=== PATIENT | male | born 1975 | race African-American/Black ===

== ENCOUNTER 2017-08-18 13:08 | Inpatient (IN) | payer OTHER ==
[2017-08-18] MEDS ORDERED: Nitroglycerin 2% Ointment 1 INCH/1 GM Packet ONE (14:12)
[2017-08-18 14:16] LABS: Troponin I 0.732 ng/mL (< 0.028)
[2017-08-18] MEDS ORDERED: Acetaminophen 325 MG TAB PO PRN (15:08)
[2017-08-18] MEDS ORDERED: Ondansetron HCl/PF 4 MG/2 ML Vial IVP PRN (15:08)
[2017-08-18] MEDS ORDERED: Ondansetron ODT 4 MG TAB PO PRN (15:08)
[2017-08-18] MEDS ORDERED: Bisacodyl 5 MG TAB PO PRN (15:08)
--- NOTE | 2017-08-18 19:33 | HP ---
PRIMARY CARE PHYSICIAN: Dr. Rod. CHIEF COMPLAINT: Shortness of breath. HISTORY OF PRESENT ILLNESS: This is a 42-year-old -[place]ian male with a significant past med ical history of hypertension, nonischemic cardiomyopathy and end-stage renal disease on dialysis for many years. The patient reports that he occasionally gets a little short of breath for dialysis an d then it will go away after they get fluid off; however, he has been feeling increased shortness of breath for the last 3-4 days associated with a dry cough and initially some nasal congestion that h as since resolved. The shortness of breath did not get better with his dialysis, they were only abl e to take off 1.2 liters yesterday before he started calf cramping. He has actually had calf crampi ng with dialysis every time for the last 2 weeks. The patient presented to [facility] and was found to be with severe hypertension. Blood pressure initially 183/108. He had cardiac markers done, which were elevated at 0.68 and so he was transferred over to [facility]. Here, re check troponin was 0.7. He denies any chest pain. His blood pressure in our emergency room was 185 /102. He had nitroglycerin placed on his chest wall and blood pressure is now down to 147/88 and hi s shortness of breath is a little bit better. O2 sats were 93% on room air at the outside emergency room. He is breathing better now on 2 liters of oxygen. PAST MEDICAL HISTORY: 1. End-stage renal disease, on hemodialysis. 2. Nonischemic cardiomyopathy. 3. Hypertension. PAST SURGICAL HISTORY: 1. AICD placement in 2009. 2. Hemodialysis catheter and fistula placements. ALLERGIES: No known drug allergies. MEDICATIONS: The patient does not remember the dosages of his medications. 1. Hydralazine 3 times a day. 2. Amlodipine once a day. 3. Metoprolol. 4. Losartan. 5. Aspirin 325 mg daily. 6. Minoxidil 3 times a day. FAMILY HISTORY: Patient's mom has lupus as well as peripheral vascular disease. His brother f rom heart disease at the age of 28 and has lots of heart disease, hypertension and renal disease in his family. SOCIAL HISTORY: The patient lives in [place]. 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 No tobacco, alcohol or illicit drug use. The patient is with 4 children. He a lso currently lives with his mother, Christian Johnston, who he states would be his medical power of atto rney. REVIEW OF SYSTEMS: Constitutional: No fevers, no chills, no weight changes. Eyes: No double visi on or blurred vision. ENT: See HPI. No sore throat. Cardiovascular: See HPI. No chest pain, no palpitations. Pulmonary: See HPI. Gastrointestinal: No abdominal pain, no nausea, vomiting, no diarrhea or constipation. Genitourinary: He does still produce a little bit of urine. No dysuria or hematuria. Musculoskeletal: Patient has muscle cramps during dialysis as above. No other muscu loskeletal complaints. Skin: No rashes or other lesions he has noticed. Neurologic: No numbness, tingling or focal weakness. PHYSICAL EXAMINATION: VITAL SIGNS: Blood pressure 147/88, pulse 83, respirations 16, O2 sat 96% on 2 liters and temperatu re 98.2. GENERAL: This is a well-developed, obese -[place]ian male in no apparent distress, breathing e asily on oxygen. He does get a little breathless when he starts speaking now. HEENT: Pupils are equal, round and reactive to light. Oropharynx is clear without lesions, erythem a or exudate. NECK: Supple. No lymphadenopathy, no thyroid nodules or enlargement. He does have some mild JVD. HEART: Regular rate and rhythm. No murmurs, rubs or gallops. LUNGS: He has some bibasilar crackles, otherwise good air movement throughout. ABDOMEN: Obese, soft and nontender to palpation. Normoactive bowel sounds. No hepatosplenomegaly or other masses. EXTREMITIES: No clubbing or cyanosis. He does have trace pretibial and foot edema. He states it w as worse that it was earlier. NEUROLOGIC: Cranial nerves are intact and equal bilaterally. No facial droop. Deep tendon reflexe s are 2+ in all extremities. Strength is normal in all extremities. PSYCHIATRIC: Alert and oriented x3, normal mood and affect. LABORATORY AND IMAGING DATA: CBC notable for hemoglobin of 11.6, normocytic anemia. A complete met abolic panel was notable for carbon dioxide of 30, a BUN of 34 and creatinine of 10, the rest is nor mal. Brain natriuretic peptide is 2600, which is markedly elevated beyond what his BNP has been in the past several years ago was the highest was 200 and was 293. Troponin was initially 0.686 rechec k was 0.732. CK-MB is normal. I did review the chest x-ray done in the emergency room along with t he radiologist's report, it does show some cardiomegaly with a left ICD and mild vascular congestion . ASSESSMENT AND PLAN: 1. End-stage renal disease with volume overload. The patient requires dialysis. We will admit isaac adler to the hospital and consult Dr. Becerra, who is director investor relations to dialyze the patient. 2. Hypertensive urgency, resolved with ablation and nitro paste to the patient's chest wall. We wi ll continue nitro paste and we will restart medications. We have to guess the dosages just for now until we get his home dosages. We will start little lower on hydralazine, amlodipine, metoprolol an d minoxidil as well as Losartan and titrate up as needed. 3. Non-ST elevation myocardial infarction. The patient does have elevated troponin. This is likel y due to heart strain combined with the patient's end-stage renal disease causing this high elevatio n; however, he could have some heart damage from the hypertensive urgency. We will consult Dr. Sadia montoya and will get an echocardiogram. 4. Nonischemic cardiomyopathy. 5. Gastrointestinal prophylaxis. We will put patient on Pepcid while he is in the hospital. 6. Deep venous thrombosis prophylaxis. We will put patient on sequential compression devices and T EDs while he is in bed. CODE STATUS: Patient is a FULL CODE. He states his medical power of commercial litigation attorney will be his mother, Boogie Johnston.
[2017-08-18] MEDS: Docusate 100 MG CAP PO SCH (20:00)
[2017-08-18] MEDS: Famotidine 20 MG TAB PO SCH (20:00)
[2017-08-18] MEDS: hydrALAZINE 25 MG TAB PO SCH (20:01)
[2017-08-18] MEDS: Nitroglycerin 2% Ointment 1 INCH/1 GM Packet TOP SCH (20:02)
[2017-08-18] MEDS: Minoxidil 2.5 MG TAB PO SCH (20:02)
[2017-08-19 05:32] LABS: #Basophils 0.1 thou/uL (0.0-0.2); #Eosinphils 0.2 thou/uL (0.0-0.7); #Lymphocytes 1.5 thou/uL (1.20-3.40); #Monocytes 0.8 thou/uL (0.11-0.59); #Neutrophils 6.9 thou/uL (1.40-6.50); %Basophils 0.7 % (0.0-1.0); %Eosinophils 2.4 % (0.0-10.0); %Monocytes 8.4 % (0.0-10.0); Hematocrit 36.4 % (42.0-52.0); Mean Platelet Volume 8.2 fL (7.4-10.4); Red Blood Cell (RBC) Count 3.78 mill/uL (4.70-6.10); White Blood Cell (WBC) Count 9.6 thou/uL (4.8-10.8)
[2017-08-19 05:49] LABS: Anion Gap 18 mmol/L (10-20); BUN (Urea Nitrogen) 45 mg/dL (8.9-20.6); Calc. Creatinine Clearance 12 mL/min (70-130); Calcium 10.1 mg/dL (7.8-10.44); Carbon Dioxide 27 mmol/L (22-29); Chloride 99 mmol/L (98-107); Estimated GFR-MDRD 6
--- NOTE | 2017-08-19 05:58 | CON ---
DATE OF CONSULTATION: 08/18/2017 CONSULTING PHYSICIAN: Dr. Mariam Johnson. REQUESTING PHYSICIAN: Dr. Quispe as well as the ER physician. REASON FOR CONSULTATION: The need for maintenance hemodialysis. IMPRESSION: 1. End-stage renal disease, hemodialysis dependent on a Thursday, Thursday and Thursday schedule. 2. Respiratory distress, query cause. I doubt this to be as a result of fluid overload. 3. Hypertension. 4. Nonischemic cardiomyopathy. PLAN: 1. The patient is not in any serious respiratory distress at this point; therefore, we will defer d ialysis to coincide with this patient's schedule of Thursday, Thursday and Thursday. 2. Further management will be dependent on the clinical course including possibility of evaluating this patient for other potential causes of respiratory distress. HISTORY OF PRESENT ILLNESS: History is that of a 42-year-old gentleman with end-stage renal disease , hemodialysis dependent on a Thursday, Thursday and Thursday, who presented here with shortness of jesenia ath. Patient did dialyze yesterday, but according to the patient, he did not have much of any fluid on board; therefore, the patient started cramping after about 1.17 liters of ultrafiltration. In a ny case, chest x-ray showed some mild pulmonary congestion, but otherwise unremarkable. The patient is now being admitted with elevated BNP and blood pressure. The patient seems to be oxygenating ok ay on nasal cannula supplementation. Patient now is to undergo hemodialysis in accordance with the schedule tomorrow. PAST MEDICAL HISTORY: Significant for end-stage renal disease, ischemic cardiomyopathy, status post defibrillator and hypertension. FAMILY HISTORY: Significant for kidney disease in the father. SOCIAL HISTORY: Denies alcohol, tobacco or illicit drug use. REVIEW OF SYSTEMS: As documented in the body of the history. ALLERGIES: No known drug allergies. PHYSICAL EXAMINATION: GENERAL: The patient was found not to be in any obvious distress. Noted with the following; VITAL SIGNS: Afebrile with temperature of 98, pulse 81, respiratory rate of 16, O2 sat 93% and bloo d pressure 177/93. HEENT: Unremarkable. CARDIOVASCULAR SYSTEM: First and second heart sounds were heard. RESPIRATORY SYSTEM: Clear to auscultation. DIGESTIVE SYSTEM: Revealed a benign abdomen. EXTREMITIES: No peripheral edema. SKIN: No new gross rash. LYMPHATICS: No peripheral lymphadenopathy. SUMMARY: A 42-year-old gentleman with end-stage renal disease who presented here with shortness of breath. Thank you for this consultation. We will follow with you.
--- NOTE | 2017-08-19 08:40 | CON ---
DATE OF CONSULTATION: 08/18/2017 HISTORY OF PRESENT ILLNESS: Sergio Linares is a 42-year-old black male with history of nonischemic cardiomyopathy, who has been followed by Dr. Burton in the past. Also, in 2009, he had an ICD, dual chamber placed. He was last seen in the office in 06/2014. He had been seen in the emergency room for bronchitis and had the troponin level that was slightly elevated and CK-MB was normal. It is of note that an echocardiogram at that time in June 2014, revealed an ejection fraction of 60% to 65% with hyperdynamic left ventricle and left ventricular hypertrophy. He has not been seen since that time. He has noted that over the past 3 to 4 days there has been having problems with increasing shortness of breath. He used to become dyspneic on the day of dialysis, but after he dialyzes, his dyspnea resolves. It has been difficulty in removing more fluid. Due to shortness of breath, he went to the emergency room in [place] and was found to have blood pressure at 183/108 with slightly elevated troponins. He denies any chest discomfort. PAST MEDICAL HISTORY: Hypertension, nonischemic cardiomyopathy, although the last ejection fraction was 60% to 65%. End-renal disease, on dialysis. OPERATIONS: Fistula placements and ICD placement in 2009. MEDICATIONS: Amlodipine 5 mg b.i.d., aspirin 325 daily, hydralazine 25 t.i.d., losartan 12.5 daily, metoprolol 50 daily, minoxidil 5 mg t.i.d. ALLERGIES: None. SOCIAL HISTORY: Does not smoke or drink. He continues to work. REVIEW OF SYSTEMS: Twelve point review of systems otherwise unremarkable. PHYSICAL EXAMINATION: VITAL SIGNS: 177/93, pulse of 81. HEENT: PERRL. NECK: Supple. CHEST: Clear. CARDIAC EXAMINATION: S1 and S2 are normal, without any S3 or S4. There is a 2/ 6 systolic ejection murmur. ABDOMEN: Obese, normal bowel sounds without tenderness or organomegaly. EXTREMITIES: Revealed no clubbing, cyanosis, or edema. NEUROLOGIC: Grossly intact. SKIN: Warm and dry. LABORATORY DATA AND DIAGNOSTICS: EKG reveals normal sinus rhythm with low voltage, nonspecific ST changes. Hemoglobin 11.6, hematocrit 36.1, white count 8600, platelets 245,000. Sodium 144, potassium 4.1, chloride 99, carbon dioxide 30, BUN 34, creatinine 10.00. CK-MBs are normal. Troponin I is up to 0.732. He has always had elevated troponin I's. BNP 2697.5. Chest x-ray reveals cardiomegaly with mild vascular congestion. IMPRESSION: 1. Nonischemic cardiomyopathy, although last ejection fraction in 06/2014, was 60% to 65%. He currently has a very elevated BNP and probably needs to have more fluid removed at dialysis if possible. 2. Chronically elevated troponin I secondary to his renal insufficiency. His CK-MB is normal and I doubt that he has had a myocardial infarction. 3. Hypertension, poorly controlled. PLAN: Medications will be adjusted as needed for blood pressure control. He will continue to undergo dialysis. Echo will be performed to reassess left ventricular function. [employer] has been contacted to evaluate his defibrillator. VISHNU
[2017-08-19] MEDS ORDERED: Heparin 10,000 UNITS/ 10 ML VIAL ONE (09:00)
[2017-08-19] MEDS: Nitroglycerin 2% Ointment 1 INCH/1 GM Packet TOP SCH ×2 (09:24→21:07)
[2017-08-19] MEDS: Aspirin 325 MG TAB PO SCH (09:24)
[2017-08-19] MEDS: Docusate 100 MG CAP PO SCH ×2 (09:24→21:05)
[2017-08-19] MEDS: Amlodipine 5 MG TAB PO SCH (09:25)
[2017-08-19] MEDS: hydrALAZINE 25 MG TAB PO SCH ×3 (09:25→21:05)
[2017-08-19] MEDS: Minoxidil 2.5 MG TAB PO SCH ×3 (09:25→21:06)
[2017-08-19] MEDS: Famotidine 20 MG TAB PO SCH (09:25)
[2017-08-19] MEDS: Losartan 25 MG TAB PO SCH (09:26)
[2017-08-19 11:13] LABS: Troponin I 0.583 ng/mL (< 0.028)
--- NOTE | 2017-08-19 11:18 | PRG ---
DATE OF SERVICE: 08/19/2017 SUBJECTIVE: The patient was seen and examined at the bedside. He is getting dialysis as we speak. He has some shortness of breath which improved to some extent since yesterday, but he still complai ns about that. No chest pain, no cough. He had a bowel movement last night. His appetite is fair. His head is atraumatic, normocephalic. PHYSICAL EXAMINATION: VITAL SIGNS: Blood pressure at the time of my visit is 155/78, pulse is 92, respiratory rate is 20, O2 saturation is 94 on 2 liters by nasal cannula. Temperature is 99.2. HEENT: Eyes; PERRLA. Conjunctivae pink. Sclerae nonicteric. Oral mucosa is moist. NECK: Supple, obese. LUNGS: Breath sounds diminished at both bases. No crackles, no rales, no wheezing. CARDIOVASCULAR: S1, S2 normal, no S3, no S4. He has a fistula on the left arm functioning properly . ABDOMEN: Soft, obese, nontender. Bowel sounds are present. No organomegaly. EXTREMITIES: No clubbing, cyanosis or edema. NEUROLOGIC: He is alert and oriented x3. There is no sensorimotor deficit. Cranial nerves are int act. LABORATORY DATA: Shows white count of 9.6, hemoglobin 11.2, hematocrit 36.4, platelet count 232. E lectrolytes within normal limits. BUN 45, creatinine 11.94. IMPRESSION: 1. End-stage renal disease with volume overload. The patient is getting dialyzed per Dr. Edgar bermeo. He is supervising that. 2. Hypertensive urgency, improved. He is on amlodipine 5 mg daily, hydralazine 25 mg 3 times a day , losartan 12.5 mg once a day, metoprolol 25 mg daily, minoxidil 5 mg 3 times a day, nitroglycerin 1 inch topical twice a day. The blood pressure is going to improve gradually with more in dialysis. 3. Elevated troponin. The patient was seen by Dr. Fung who noticed that he has chronically geovanni vated troponin secondary to his renal insufficiency and he doubts that this is somehow related to ac amelia coronary event, the patient does not complain about any chest pain. 4. Nonischemic cardiomyopathy with ejection fraction 60-65 in 2013. PLAN: We are waiting for results on echocardiogram. Also, the patient was checked by [employer] rep resentative and it looks like his battery on his AICD is running low, so we will let Dr. Kenton anderson and he will need to have battery replaced. Plan is as mentioned above and continue DVT prophylax is with SCDs.
--- NOTE | 2017-08-19 12:29 | PRG ---
DATE OF SERVICE: 08/19/2017 SUBJECTIVE: The patient was seen and examined today at dialysis with no new complaints, noted with the following. OBJECTIVE: VITAL SIGNS: Afebrile with a temperature of 99.2, pulse 92, blood pressure 155/78, respiratory rate 20 and O2 saturation 94%. HEENT: Unremarkable with moist oral mucosa. No conjunctival injection, no icterus. NECK: Supple. CARDIOVASCULAR SYSTEM: First and second heart sounds were heard. RESPIRATORY SYSTEM: Clear to auscultation. DIGESTIVE SYSTEM: Revealed a benign abdomen. EXTREMITIES: No peripheral edema. SKIN: No new gross rash. LYMPHATICS: No peripheral lymphadenopathy. IMPRESSION: 1. End-stage renal disease, on hemodialysis. 2. Respiratory distress seems to have improved. PLAN: Continue hemodialysis per schedule. Further management dependent on the clinical course.
--- NOTE | 2017-08-19 12:46 | PDOC.CTH ---
<Kelin Chery - Last Filed: 08/20/17 09:15> Cardiology Progress Note - Subjective The pt was seen and examined. No overnight events. No cardiac complaints. He still complains of SOB due to nasal drip drainage from sinus/allergy. No distress with RA. - Objective Vital Signs Temp Pulse Resp BP BP BP Pulse Ox 08/19/17 09:25 92 155/78 H 08/19/17 07:50 99.2 F 92 20 94 L 08/19/17 07:36 99.2 F 92 20 155/78 H 94 L 08/19/17 04:00 98.3 F 92 22 H 136/74 94 L 08/19/17 02:05 92 L Weight 240 lb 12.8 oz 08/18/17 08/19/17 08/20/17 06:59 06:59 06:59 Intake Total 1560 Output Total 500 Balance 1060 - Physical Examination General/Neuro: alert & oriented x3 Neck: no JVD present Lungs: CTA Heart: RRR Abdomen: soft Extremities: other: (No edemas) - Telemetry Telemetry Rhythm: SR 90s - Labs Result Diagrams: 08/19/17 04:10 08/19/17 04:10 Troponin/CKMB CK-MB (CK-2) 5.5 ng/mL (0-6.6) 08/19/17 10:23 Troponin I 0.583 ng/mL (< 0.028) H* 08/19/17 10:23 - Assessment/Plan 1. ESRD with Volume overload - SOB improved today; RA without any distress at this time; cont. monitor 2. HTN - stable with current medication and dialysis; cont. monitor 3. noischemic CMY - stable; cont. monitor 4. AICD placement - close to ADALI; EP consult for generator replacement MAR reviewed Review of Systems - Review of Systems Constitutional: reports: no symptoms reported EENTM: reports: no symptoms reported Respiratory: reports: see HPI Cardiac (ROS): reports: no symptoms reported ABD/GI: reports: no symptoms reported : reports: no symptoms reported Musculoskeletal: reports: no symptoms reported Skin: reports: no symptoms reported Neurological: reports: no symptoms reported <Guadalupe Burton - Last Filed: 08/20/17 16:11> Cardiology Progress Note - Objective Vital Signs Temp Pulse Resp BP BP BP Pulse Ox 08/20/17 14:53 100 116/54 L 08/20/17 12:00 98.9 F 94 16 96/52 L 98 08/20/17 08:48 91 148/74 H 08/20/17 08:42 98.7 F 91 16 148/76 H 95 Weight 235 lb 1.6 oz 08/19/17 08/20/17 08/21/17 06:59 06:59 06:59 Intake Total 1560 1475 Output Total 500 4000 Balance 1060 -2525 - Labs Result Diagrams: 08/19/17 04:10 08/19/17 04:10 Troponin/CKMB CK-MB (CK-2) 5.5 ng/mL (0-6.6) 08/19/17 10:23 Troponin I 0.583 ng/mL (< 0.028) H* 08/19/17 10:23 - Assessment/Plan Pt. seen and eval. I agree with the A/P by the SENIOR PATROL AGENT. Will ask EP to see for AICD that is at ADALI. Pt. feels better after diuresis. Will review echo.
[2017-08-20 08:16] VITALS: BMI 36.8
[2017-08-20] MEDS: Famotidine 20 MG TAB PO SCH (08:48)
[2017-08-20] MEDS: Aspirin 325 MG TAB PO SCH (08:48)
[2017-08-20] MEDS: Docusate 100 MG CAP PO SCH ×2 (08:48→21:34)
[2017-08-20] MEDS: Amlodipine 5 MG TAB PO SCH (08:48)
[2017-08-20] MEDS: hydrALAZINE 25 MG TAB PO SCH ×3 (08:48→21:34)
[2017-08-20] MEDS: Losartan 25 MG TAB PO SCH (08:49)
[2017-08-20] MEDS: Minoxidil 2.5 MG TAB PO SCH ×3 (08:49→21:36)
[2017-08-20] MEDS: Nitroglycerin 2% Ointment 1 INCH/1 GM Packet TOP SCH ×2 (08:50→21:36)
--- NOTE | 2017-08-20 09:19 | PDOC.CTH ---
<Kelin Chery - Last Filed: 08/20/17 09:17> Cardiology Progress Note - Subjective The pt was seen and examined. No overnight events. No cardiac complaints. - Objective Vital Signs Temp Pulse Resp BP BP BP Pulse Ox 08/20/17 08:48 91 148/74 H 08/20/17 08:42 98.7 F 91 16 148/76 H 95 08/20/17 04:00 98.7 F 100 18 131/68 94 L 08/20/17 01:51 93 L 08/20/17 00:00 97.9 F 90 18 103/53 L 94 L Weight 235 lb 1.6 oz 08/19/17 08/20/17 08/21/17 06:59 06:59 06:59 Intake Total 1560 1475 Output Total 500 4000 Balance 1060 -2525 - Physical Examination General/Neuro: alert & oriented x3 Neck: no JVD present Lungs: CTA Heart: RRR Abdomen: soft, other: Extremities: other: (No edema) - Telemetry Telemetry Rhythm: SR 90s - Labs Result Diagrams: 08/19/17 04:10 08/19/17 04:10 Troponin/CKMB CK-MB (CK-2) 5.5 ng/mL (0-6.6) 08/19/17 10:23 Troponin I 0.583 ng/mL (< 0.028) H* 08/19/17 10:23 - Assessment/Plan 1. ESRD with Volume overload - SOB improved; RA without any distress at this time; cont. monitor 2. HTN - stable with current medication and dialysis; cont. monitor 3. noischemic CMY - stable; cont. monitor; Echo result is pending 4. AICD placement - close to ADALI; EP consult for generator replacement MAR reviewed Review of Systems - Review of Systems Constitutional: reports: no symptoms reported EENTM: reports: no symptoms reported Respiratory: reports: no symptoms reported Cardiac (ROS): reports: no symptoms reported ABD/GI: reports: no symptoms reported : reports: no symptoms reported Musculoskeletal: reports: no symptoms reported <Guadalupe Burton - Last Filed: 08/20/17 18:08> Cardiology Progress Note - Objective Vital Signs Temp Pulse Pulse Pulse Resp BP BP 08/20/17 16:00 99.0 F 98 18 08/20/17 14:53 100 116/54 L 08/20/17 14:03 104 H 105 H 135/64 08/20/17 12:00 98.9 F 94 16 08/20/17 08:48 91 148/74 H 08/20/17 08:42 98.7 F 91 16 BP BP BP Pulse Ox Pulse Ox Pulse Ox 08/20/17 16:00 127/58 L 98 08/20/17 14:53 08/20/17 14:03 137/70 98 97 08/20/17 12:00 96/52 L 98 08/20/17 08:48 08/20/17 08:42 148/76 H 95 Weight 235 lb 1.6 oz 08/19/17 08/20/17 08/21/17 06:59 06:59 06:59 Intake Total 1560 1475 Output Total 500 4000 Balance 1060 -2525 - Labs Result Diagrams: 08/19/17 04:10 08/19/17 04:10 Troponin/CKMB CK-MB (CK-2) 5.5 ng/mL (0-6.6) 08/19/17 10:23 Troponin I 0.583 ng/mL (< 0.028) H* 08/19/17 10:23 - Assessment/Plan Pt. seen and evaluated. He has HCMY. Severe LVH, concentric. EF approx. 60%. Diastolic dysfx. I agree with the remainder of the A/P by the SUPERVISOR FOOD CHECKERS AND CASHIERS.
--- NOTE | 2017-08-20 09:44 | PRG ---
DATE OF SERVICE: 08/20/2017 SUBJECTIVE: The patient was seen and examined at the bedside. He is doing well. He feels like he is back to his baseline in terms of shortness of breath and volume overload. He is able to get up a nd go to the bathroom and move bowels. His appetite is good. OBJECTIVE: VITAL SIGNS: Blood pressure is 148/74, pulse is 91, respiratory rate is 16, temperature is 98.7, an d O2 saturation is 95% on room air. HEENT: Atraumatic, normocephalic. Eyes PERRLA. Conjunctivae pinkish. Sclerae nonicteric. Oral m ucosa is moist. NECK: Supple, obese, and nontender. No carotid bruits. LUNGS: Breaths sounds clear bilaterally. No wheezing. No rales, no crackles. CARDIOVASCULAR: S1, S2, somewhat distant. No S3, no S4. There is a systolic murmur 2/6 at the lef t sternal border, mostly audible. ABDOMEN: Soft, nontender. Bowel sounds are present. EXTREMITIES: 1+ peripheral edema similar bilaterally, nonpitting. NEUROLOGIC: He is alert and oriented x4. There is no any motor or sensory deficits. LABORATORY DATA: None today. IMPRESSION: 1. End-stage renal disease with volume overload. The patient seems to be back to his baseline at t his point. 2. Hypertensive urgency. His blood pressure is controlled much better at this point. 3. Elevated troponin, which is felt that this is chronic and related to renal insufficiency. 4. Nonischemic cardiomyopathy. Echocardiogram was done during this hospitalization and results are pending. 5. Low level of battery status on his automated implantable cardioverter defibrillator after the de vice was checked yesterday. The patient is going to see grain origination specialist, Dr. Mills for his heart evalu ation and most likely replacing the battery and that is the plan for today.
--- NOTE | 2017-08-20 18:20 | PRG ---
DATE OF SERVICE: 08/20/2017 SUBJECTIVE: The patient was seen and examined today with no new complaint noted. PHYSICAL EXAMINATION: VITAL SIGNS: Afebrile with temperature 98.9, pulse 94, blood pressure 116/54, respiratory rate 16, O2 saturation 98%. HEENT: Unremarkable with moist oral mucosa. Neck was supple. No conjunctival injection or icterus. CARDIOVASCULAR: First and second heart sounds were heard. RESPIRATORY: Clear to auscultation. DIGESTIVE: Revealed a benign abdomen with positive bowel sounds. EXTREMITIES: No peripheral edema. SKIN: No new gross rash. LYMPHATICS: No peripheral lymphadenopathy. IMPRESSION: 1. End-stage renal disease, hemodialysis dependent on a Thursday, Thursday, Thursday schedule. 2. Ischemic cardiomyopathy, status post defibrillator. PLAN: 1. From the renal standpoint, the patient is good for discharge; however, if the patient remains he re by tomorrow, we will go ahead and dialyze this patient in accordance with his schedule. 2. Further management to be dependent on the clinical course.
[2017-08-21] MEDS ORDERED: Heparin 10,000 UNITS/1 ML VIAL ONE (08:27)
[2017-08-21] MEDS: hydrALAZINE 25 MG TAB PO SCH ×2 (08:40→16:01)
[2017-08-21] MEDS: Nitroglycerin 2% Ointment 1 INCH/1 GM Packet TOP SCH (08:40)
[2017-08-21] MEDS: Docusate 100 MG CAP PO SCH (09:35)
[2017-08-21] MEDS: Minoxidil 2.5 MG TAB PO SCH ×2 (12:56→16:01)
[2017-08-21] MEDS ORDERED: CEFAZOLIN/Water 2 GM/20 ML SYRINGE ONE (13:45)
[2017-08-21] MEDS ORDERED: Propofol 200 MG/20 ML VIAL ONE (13:52)
[2017-08-21] MEDS ORDERED: Lidocaine 1% PF 5 ML VIAL ONE (13:52)
[2017-08-21] MEDS ORDERED: Fentanyl 100 MCG/2 ML VIAL ONE (14:15)
--- NOTE | 2017-08-21 15:46 | PDOC.CTH ---
Cardiology Progress Note - Subjective Pt. seen and eval.No complaints. AICD generator changed. No complications. - Objective Vital Signs Temp Pulse Resp BP Pulse Ox 08/21/17 11:59 98.6 F 92 20 113/62 100 08/21/17 08:40 92 08/21/17 08:20 98.7 F 94 16 120/59 L 100 Weight 231 lb 08/20/17 08/21/17 08/22/17 06:59 06:59 06:59 Intake Total 1475 500 Output Total 4000 0 Balance -2525 500 - Physical Examination General/Neuro: alert & oriented x3 Neck: carotid US brisk Lungs: CTA Heart: RRR Abdomen: no HSM - Labs Result Diagrams: 08/19/17 04:10 08/19/17 04:10 Troponin/CKMB CK-MB (CK-2) 5.5 ng/mL (0-6.6) 08/19/17 10:23 Troponin I 0.583 ng/mL (< 0.028) H* 08/19/17 10:23 - Assessment/Plan 1. CMY. Hypertrophic. Diastolic dysfunction. Normal EF. Continue present meds. 2. AICD @ [facility]. [facility] today. 3. HTN. Maximize meds. Should be able to go home today. Review of Systems - Review of Systems EENTM: reports: no symptoms reported Respiratory: reports: no symptoms reported Cardiac (ROS): reports: no symptoms reported : reports: no symptoms reported Neurological: reports: no symptoms reported
[2017-08-21 15:57] VITALS: BP 126/59; TEMP 97.8
[2017-08-21] MEDS: Famotidine 20 MG TAB PO SCH (16:00)
[2017-08-21] MEDS: Losartan 25 MG TAB PO SCH (16:00)
[2017-08-21] MEDS: Amlodipine 5 MG TAB PO SCH (16:00)
[2017-08-21] MEDS: Aspirin 325 MG TAB PO SCH (16:00)
--- NOTE | 2017-08-21 16:41 | RAD ---
PORTABLE AP CHEST X-RAY 08/21/17 HISTORY: Post cardiac device placement. COMPARISON: 07/05/14. FINDINGS: A dual lead left subclavian AICD device is noted in place. The cardiac silhouette is mildly enlarged . Pulmonary vasculature is within normal limits. The lungs are clear. There is no pneumothorax or pl eural effusion. There has been no interval change from prior study. IMPRESSION: 1. No acute cardiopulmonary process. 2. Cardiomegaly. 3. Left subclavian AICD device in place. POS: [facility]
[2017-08-21] MEDS ORDERED: Cephalexin 250 MG CAP PO SCH (18:00)
--- NOTE | 2017-08-21 21:44 | PRG ---
DATE OF SERVICE: 08/21/2017 SUBJECTIVE: Patient was seen and examined at bedside and overnight events noted. Patient denies an y shortness of breath or chest pain or palpitation. No history of nausea or vomiting or diarrhea or fever or chills or cramps. OBJECTIVE: GENERAL: This is a well-built male, in no apparent distress. VITAL SIGNS: Temperature 97.8, pulse 92, respiratory rate 16, blood pressure 133/62. HEENT: Atraumatic, normocephalic, Oral mucosa is moist. NECK: Supple. CARDIOVASCULAR: S1, S2 heard, rate and rhythm regular. RESPIRATORY: Clear to auscultation. GASTROINTESTINAL: Abdomen is soft. MUSCULOSKELETAL: No tenderness, no edema. DERMATOLOGIC: No skin rash. NEUROLOGIC: Alert and awake and oriented x3. No focal neurologic deficits. Moving all the extremi ties. PSYCHIATRIC: Mood and affect normal. ASSESSMENT AND PLAN: 1. End-stage renal disease. The patient was seen during dialysis. The patient was seen by Dr. Pro mcintosh without knowing that I was his president sales and marketing. I will take over today. The patient was seen and evaluated during dialysis. 2. Hypertension, stable. 3. Edema, controlled. 4. Fluid overload. Remove fluid with dialysis. Plan is to continue on dialysis as tolerated.
--- NOTE | 2017-08-22 00:58 | CON ---
ELECTROPHYSIOLOGY CONSULTATION REPORT DATE OF CONSULTATION: 08/20/2017 I am seeing Mr. Linares at our [facility] as an electrophysiology mergers and acquisitions consultant. His problems are: 1. Two-chamber ICD originally implanted in 07/2010, now at elective replacement indicator. A. Dual chamber Medtronic Alexys II DR device. 2. History of nonsustained ventricular tachyarrhythmias. 3. Chronic systolic/diastolic heart failure with acute exacerbation as well as fluid overload on th is admission. A. Prior . B. Severe left ventricular hypertrophy. C. Family history of hypertrophic cardiomyopathy. 4. End-stage renal disease, on hemodialysis. 5. Coronary artery risk factors. A. Hypertension. 6. History of left upper arm AV fistula. ALLERGIES: None noted. MEDICATIONS AT HOME: Included minoxidil, aspirin, metoprolol, hydralazine, amlodipine and losartan. SUBJECTIVE: Mr. Linares was admitted with progressive dyspnea, which have been fairly quickly even though he has adhered to his usual hemodialysis session. He was having dry cough, some nasal conges tion which seems resolved. He did not have any chest pains. Again, his dyspnea did not improve wit h the usual way after dialysis even though they took of 1.2 liters of fluid. He had some cramping s ensation at that time. Blood pressure was elevated in the [facility]. Subsequently, he was tr ansferred. He has no PND or orthopnea at this time. His blood pressure is better controlled. No f ever, chills or cough during the evaluation as his ICD was found to be at elective replacement indic ator. OBJECTIVE DATA: VITAL SIGNS: Blood pressure is 113/62, heart rate 93, respirations 20 and temperature 98.6 degrees Fahrenheit. GENERAL: This is an alert and oriented man with elevated BMI, in no apparent distress. NECK: Supple. Jugular veins are not distended. CHEST: Coarse without crackles. CARDIOVASCULAR: Heart sounds are regular to rate and rhythm. No murmur or gallop. ABDOMEN: Benign. Bowel sounds are positive. EXTREMITIES: Lower extremities without edema, clubbing or cyanosis. NEUROLOGIC: Patient is nonfocal. MUSCULOSKELETAL: No joint swelling or deformities. SKIN: Without rash. DATABASE: The left upper extremity AV fistula is in place, also left subclavian ICD in site without reaction. The EKG is reviewed revealing sinus rhythm and a narrow complex QRS. No significant ST-T changes. A 2D echo from 08/19/2017 shows a 60% to 65% severe left ventricular hypertrophy pacing right ventri alex and atrium or left atrial enlargement. LABORATORY DATA: BNP is 2697. Chest shows cardiomyopathy with mild vascular congestion. White cou nt is 9.6, hemoglobin 9.2 and platelet count is 232. Sodium 140, potassium 4.4, BUN is 45, creatini ne is 1.9, troponin I is 0.7 and 0.58 consecutively. Telemetry strips do reveal episodes of nonsust ained ventricular tachycardia. The interrogation of his device is revealing a dual chamber ICD with a battery voltage of 2.62 volts at elective replacement indicator. Lead parameters are adequate and nonsustained ventricular tachy cardia episodes are seen. The RV pacing threshold was at 2 volts at 0.7 milliseconds. ASSESSMENT AND PLAN: Mr. Linares is a very pleasant 42-year-old man with prior history of systolic/ diastolic heart failure as well as severely reduced left ventricular function at 20% range in the pa st. Since then, his left ventricular ejection fraction has improved, but he continues to have hyper trophy as well as nonsustained ventricular tachyarrhythmia. He has not had sustained episode. I discussed the pros and cons about the replacing his battery, which is now at elective replacement indicator. Although he has not had sustained episodes with his several history, he is still at high risk. We will schedule him in the near date for an ICD generator change. Risk and benefits detail ed. He understands the risks of infection and bleeding. Routine heart failure therapy otherwise advised.
--- NOTE | 2017-08-22 09:09 | DIS ---
DATE OF ADMISSION: 08/18/2017 DATE OF DISCHARGE: 08/21/2017 CONSULTANTS: Dr. Becerra from Nephrology Service, Dr. Dixon Fung from Cardiology Service, jose Goncalves from Electrophysiology Service. HOSPITAL COURSE: Patient is a 42-year-old -[place] male with significant past medical histo ry of hypertension; nonischemic cardiomyopathy; and end-stage renal disease, on dialysis for many ye ars; who presented to the emergency room with complaints of shortness of breath going on for 3 to 4 days prior to this hospitalization, which was associated with some dry cough, initially with some na neha congestion, but this resolved, but shortness of breath did not get better with his dialysis. He developed some calf cramping with dialysis and this was going on each time he was getting dialysis for the last 2 weeks. When he presented to the emergency room in [place], he was found to have severe hypertension with blood pressure of 183/108. Cardiac markers were done, which showed elevat ion of troponin at 0.68, so the patient was transferred to [facility] Emergency Room. The second troponin, which was done in our facility, was 0.7. He denied any chest pain. He was giv en nitroglycerin ointment and blood pressure improved significantly to 147 and 88 while in the emerg ency room. His pulse oximetry, at the time of ER visit, was 93% on room air. At the time of ER vis it, his labs showed a CO2 of 30, BUN of 34, creatinine was 10. BNP was 2600. CK-MB was normal. Tr oponin, as mentioned above, 0.686 and 0.732. Chest x-ray showed cardiomegaly with left ICD and mild vascular congestion. The patient got admitted to the hospital for further evaluation of his proble m. It was felt that this was volume overload status. His electronic video games servicer, Dr. Becerra, was consult ed, and in the beginning, it was felt that he had non-ST segment elevation myocardial infarction. C ardiologist, Dr. Fung, was consulted and he noticed that he had a history of elevated troponins in the past. This is most likely related to his renal failure. The patient was dialyzed by Dr. Pro mcintosh and his shortness of breath definitely improved gradually, and this also improved his blood pressure. He had echocardiogram done during this hospitalization, which showed severe LVH and eject ion fraction visually estimated at 60% to 65% along with left atrium moderately to severely dilated. [id number] aortic regurgitation. The patient had his device interrogated and we found that his battery was low, so the battery replaced by Dr. Goncalves today. He is doing well. His vital signs, blood pressure is 126/59, pulse is 92, respiratory rate is 16, temperature is 97.8, O2 saturation i s 100% on room air. He was seen and evaluated before he is being discharged home. He is going to [facility] on a renal diet. Activities are limited per protocol with a patient, who had just a procedure w ith a device requiring limitation of the use of the left upper extremity. DISCHARGE MEDICATIONS: Amlodipine 5 mg once a day, aspirin 325 mg once a day, Keflex 500 mg q.6 [place] rs #28,hydralazine 25 mg 3 times a day, losartan 12.5 mg daily, metoprolol succinate 25 mg daily, mi noxidil 5 mg 3 times a day. Also, he would take Tylenol #3 q.4 hours as needed for the pain. He is getting a prescription for that, a count of 10 tablets. He is going to follow up with the primary care physician in 1 week and he will follow up with the beach lifeguard, Dr. Goncalves, in 6 weeks.
--- NOTE | 2017-10-09 14:46 | EKG ---
Test Reason : NSTEMI Blood Pressure : / mmHG Vent. Rate : 083 BPM Atrial Rate : 083 BPM P-R Int : 194 ms QRS Dur : 108 ms QT Int : 404 ms P-R-T Axes : 059 106 018 degrees QTc Int : 474 ms Normal sinus rhythm Rightward axis Nonspecific T wave abnormality Prolonged QT Abnormal ECG Confirmed by ARON BEGUM, MONICA Dunlap ([id number]), editor in chief newspaper LISA MOYA ([id number]) on 10/09/2017 2:46:18 PM Referred By: ARON Confirmed By:MONICA SHARP MD
== END 2017-08-21 17:58 | disposition home or self-care (01) | DRG 981 ==
LOC: ERS 13:08 → 2NO 14:30
PROVIDERS: ADMIT Emergency Medicine; ATTEND Emergency Medicine
PROC: 5A1D70Z Performance of Urinary Filtration, Intermittent, Less than 6 Hours Per Day (ICD-10-PCS; principal; 2017-08-19)
PROC: 0JH608Z Insertion of Defibrillator Generator into Chest Subcutaneous Tissue and Fascia, Open Approach (ICD-10-PCS; 2017-08-21)
PROC: 0JPT0PZ Removal of Cardiac Rhythm Related Device from Trunk Subcutaneous Tissue and Fascia, Open Approach (ICD-10-PCS; 2017-08-21)
PROC: 3E0102A Introduction of Anti-Infective Envelope into Subcutaneous Tissue, Open Approach (ICD-10-PCS; 2017-08-21)
DX: E87.79 Other fluid overload (principal); N18.6 End stage renal disease; I47.2 Ventricular tachycardia; I12.0 Hypertensive chronic kidney disease with stage 5 chronic kidney disease or end stage renal disease; I42.2 Other hypertrophic cardiomyopathy; Z99.2 Dependence on renal dialysis; I16.0 Hypertensive urgency; Z45.02 Encounter for adjustment and management of automatic implantable cardiac defibrillator; R74.8 Abnormal levels of other serum enzymes
CPT/HCPCS: 33222; 33228; 36415; 71010; 80048; 82553; 84484; 85025; 87340; 90935; 93005; 93306; 93641; 93798; C1721; G0257; J1644; J2001; J2704; J3010; J3490

== ENCOUNTER 2018-06-11 00:57 | Inpatient (IN) | payer OTHER ==
[2018-06-11] MEDS ORDERED: Adacel (T-DAP) 0.5 ML VIAL ONE (01:20)
[2018-06-11] MEDS ORDERED: CEFAZOLIN/Water 2 GM/20 ML SYRINGE ONE (01:20)
[2018-06-11] MEDS ORDERED: Lidocaine 1% (PF) 30 ML VIAL ONE (01:22)
[2018-06-11] MEDS ORDERED: Protamine Sulfate 50 MG/5 ML VIAL ONE (01:36)
[2018-06-11] MEDS ORDERED: Heparin 5,000 UNITS/ML VIAL ONE (01:36)
[2018-06-11 01:56] LABS: Hemoglobin 10.8 g/dL (14.0-18.0); Mean Corpuscular HGB CONC 34.1 g/dL (32.0-36.0); Mean Corpuscular Hemoglobin 32.3 pg (27.0-31.0); Mean Corpuscular Volume 94.7 fL (78.0-98.0); Mean Platelet Volume 8.3 fL (7.4-10.4); Platelet Count 210 thou/uL (130-400); RBC Distribution Width 13.8 % (11.5-14.5); Red Blood Cell (RBC) Count 3.34 mill/uL (4.70-6.10); White Blood Cell (WBC) Count 25.3 thou/uL (4.8-10.8)
[2018-06-11] MEDS ORDERED: Fentanyl 100 MCG/2 ML VIAL ONE (02:01)
[2018-06-11 02:02] LABS: INR-International Normal Ratio 1.2; PTT 27.7 SEC (22.9-36.1); Prothrombin Time 14.8 SEC (12.0-14.7)
[2018-06-11 02:12] LABS: ALT (SGPT) 10 U/L (8-55); AST (SGOT) 13 U/L (5-34); Albumin 3.6 g/dL (3.5-5.0); Alkaline Phosphatase 70 U/L (40-150); Anion Gap 24 mmol/L (10-20); BUN (Urea Nitrogen) 46 mg/dL (8.9-20.6); Bilirubin, Total 0.3 mg/dL (0.2-1.2); Calc. Creatinine Clearance 0 mL/min (70-130); Calcium 9.3 mg/dL (7.8-10.44); Carbon Dioxide 21 mmol/L (22-29); Chloride 97 mmol/L (98-107); Estimated GFR-MDRD 5; Globulin 3.5 g/dL (2.4-3.5); Glucose 204 mg/dL (70-105); Potassium 4.4 mmol/L (3.5-5.1); Protein, Total 7.1 g/dL (6.0-8.3); Sodium 138 mmol/L (136-145)
[2018-06-11 02:14] LABS: Band 1 % (5-11); Lymphocytes 13 % (21-51); MDiff Complete? YES; Monocytes 3 % (0-10); Neutrophil 83 % (42-75)
[2018-06-11 02:17] LABS: CKMB 4.6 ng/mL (0-6.6)
[2018-06-11 02:23] LABS: Troponin I 0.527 ng/mL (< 0.028)
[2018-06-11] MEDS ORDERED: Ondansetron HCl/PF 4 MG/2 ML Vial IVP PRN ×2 (02:55→03:53)
[2018-06-11] MEDS ORDERED: Promethazine HCl 25 MG/ML VIAL IM PRN (02:55)
[2018-06-11] MEDS ORDERED: Promethazine HCl 25 MG/ML VIAL SLOW IVP PRN (02:55)
[2018-06-11] MEDS ORDERED: HYDROcodone/Acetaminophen 5/325 mg Tablet PO PRN (03:53)
[2018-06-11] MEDS ORDERED: Acetaminophen 325 MG TAB PO PRN (03:53)
--- NOTE | 2018-06-11 03:59 | OP ---
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 PROCEDURE: Suture repair, AV fistula aneurysm. SURGEON: Mike Cheung M.D. ANESTHESIA: General. ESTIMATED BLOOD LOSS: Minimal. PROCEDURE: After prepping and draping, the skin edges were debrided to fresh tissue and 3-0 silk fig [id number] ligatures x3 were placed. Tourniquet was then released at that point and there was palp able pulse in the more distal fistula. The fistula that had been secured with indurated and nonpulsa tile. Following this, patient was awakened to be taken to the recovery room.
[2018-06-11 05:10] VITALS: BMI 36.1
--- NOTE | 2018-06-11 06:50 | HP ---
HISTORY OF PRESENT ILLNESS: This is a 42-year-old gentleman on long-term hemodialysis who has had so me aneurysms of his fistula for some time and was seeing a physician in the [place] area and anticip ation of a repair of the fistula. He began hemorrhaging tonight in bed and was transferred by [facility] from the [place] [facility]. PAST MEDICAL HISTORY: Includes hypertension. PAST SURGICAL HISTORY: He has a history of nonischemic cardiomyopathy, having undergone AICD placeme nt in 2009 and then battery replacement last year. His ejection fraction is improved by echo most re cently to 60-65%. He states he may also have atrial fibrillation for which he takes an aspirin a day . MEDICATIONS: Otherwise include hydralazine 25 t.i.d., amlodipine 5 b.i.d., losartan 12.5 a day, meto prolol 50 daily, minoxidil 5 t.i.d. ALLERGIES: No known allergies. SOCIAL HISTORY: Nonsmoker, nondrinker. PHYSICAL EXAMINATION: Alert, cooperative gentleman in no distress. He has a tourniquet on his left upper extremity just below the shoulder and just below that. Otherwise, he has blood over abdo men and legs has dried. His lungs are clear to auscultation. His cardiac exam reveals a regular rhy thm with heart rate of 95. . Extremities are warm. PLAN: At this time is for suture repair of his aneurysm without formal repair of his aneurysmal AV f istula. Informed consent has been obtained.
[2018-06-11] MEDS ORDERED: hydrALAZINE 25 MG TAB PO SCH (09:00)
[2018-06-11] MEDS ORDERED: Losartan 25 MG TAB PO SCH (09:00)
[2018-06-11] MEDS ORDERED: Metoprolol Tartrate 25 MG TAB PO SCH (09:00)
[2018-06-11] MEDS ORDERED: Amlodipine 5 MG TAB PO SCH (09:00)
[2018-06-11 11:25] LABS: HBSAg Index 0.19 S/CO (0-0.99); Hep B Surf Ag Non-Reactive S/CO (NonReactive)
[2018-06-11] MEDS: Vancomycin HCl 1 GM in Premix Bag 1 BAG IVPB SCH ×2 (12:48→13:05)
--- NOTE | 2018-06-11 13:02 | CON ---
DATE OF CONSULTATION: 06/11/2018 REASON FOR CONSULTATION: Stage 6 chronic kidney disease, on maintenance hemodialysis. HISTORY OF PRESENT ILLNESS: This is a very pleasant 42-year-old gentleman who dialyzing Thursday, Thursday, Thursday, who presented to the hospital after he noted a leak from his AV fistula. The patient's fistula was repaired and I was consulted for dialysis this morning. The patient denies headache, numbness, tingling or weakness. PAST MEDICAL HISTORY: Hypertension, end-stage renal disease. AICD, nonischemic cardiomyopathy, history of AV fistula, history of tunneled dialysis catheter. HOME MEDICATIONS: List reviewed. HOSPITAL MEDICATIONS: List reviewed. ALLERGIES: Reviewed. REVIEW OF SYSTEMS: Fifteen point review of systems was performed and negative except as noted above. GENERAL: Weakness- HEAD: Headache- NECK: No swelling or lumps. NOSE: No epistaxis or discharge. EYES: No diplopia or pain. RESPIRATORY: Dyspnea- CARDIOVASCULAR: Chest pain- GASTROINTESTINAL: Nausea- /SOLAR SALES ADVISOR: Hematuria- MUSCULOSKELETAL: No joint pain. NEUROPSYCHIATIC SYSTEMS: No suicidal ideation. No ideation. SKIN: Denies any rash or ulcer. CONSTITUTIONAL: No fever or chills. PHYSICAL EXAMINATION: GENERAL: Patient is awake, alert. VITAL SIGNS: Pulse 90, breathing 16, blood pressure 196/66. OBJECTIVE: See above. Awake, alert, in no acute distress. GENERAL APPEARANCE AND MENTAL STATUS: Fair. HEAD/NECK: Normocephalic. Atraumatic. EYES: EOMI. No deformity. EARS: Clear. No ulcers. NOSE: Intact. No lesions. MOUTH: Clear. No discharge. THROAT: Clear. No exudate. LUNGS: Clear. No crackles. CARDIAC: S1, S2. No rub. ABDOMEN: Benign. BS+. GENITALIA/RECTUM: Lo absent. BACK/EXTREMITIES: Edema 0+ Ulcer- NEUROLOGICAL: Alert and motor intact. SKIN: Rash- Bruise- LYMPHATICS: Edema- Ulcer- LABORATORY: Hemoglobin 10.8. ASSESSMENT AND RECOMMENDATIONS: 1. Stage 6 chronic kidney disease, plan hemodialysis. 2. Elevated white count. We will give vancomycin prophylactically, get blood cultures. 3. Anemia, stable. 4. Medications based on glomerular filtration rate are appropriate. MTDD
[2018-06-11 16:01] VITALS: BP 109/70; TEMP 98.2
== END 2018-06-11 17:38 | disposition home or self-care (01) | DRG 252 ==
LOC: ERS 00:57 → SDC/OP 02:09 → SURG A 03:00
PROVIDERS: ADMIT Thoracic Surgery (Cardiothoracic Vascular Surgery); ATTEND Thoracic Surgery (Cardiothoracic Vascular Surgery)
PROC: 03QY0ZZ Repair Upper Artery, Open Approach (ICD-10-PCS; principal; 2018-06-11)
PROC: 5A1D70Z Performance of Urinary Filtration, Intermittent, Less than 6 Hours Per Day (ICD-10-PCS; 2018-06-11)
DX: T82.838A Hemorrhage due to vascular prosthetic devices, implants and grafts, initial encounter (principal); N18.6 End stage renal disease; I12.0 Hypertensive chronic kidney disease with stage 5 chronic kidney disease or end stage renal disease; I42.9 Cardiomyopathy, unspecified; D62 Acute posthemorrhagic anemia; Z99.2 Dependence on renal dialysis; Z95.810 Presence of automatic (implantable) cardiac defibrillator; D63.1 Anemia in chronic kidney disease
CPT/HCPCS: 36415; 36430; 80053; 82553; 84484; 85025; 85610; 85730; 86850; 86900; 86901; 87340; 90715; J1644; J2001; J2720; J3010; J3370; P9016

== ENCOUNTER 2018-09-17 15:16 | Emergency (ER) | payer OTHER ==
[~2018-09-17 15:16] MED LIST: Heparin 1,000 UNITS/ML VIAL ONE
[2018-09-17 17:39] LABS: Anion Gap 29 mmol/L (10-20); BUN (Urea Nitrogen) 69 mg/dL (8.9-20.6); Calc. Creatinine Clearance 0 mL/min (70-130); Calcium 10.3 mg/dL (7.8-10.44); Carbon Dioxide 11 mmol/L (22-29); Chloride 103 mmol/L (98-107); Estimated GFR-MDRD 4; Glucose 85 mg/dL (70-105); Sodium 136 mmol/L (136-145)
[2018-09-17 17:45] LABS: Potassium 6.6 mmol/L (3.5-5.1)
[2018-09-17 19:39] LABS: HBSAg Index 0.19 S/CO (0-0.99); Hep B Surf Ag Non-Reactive S/CO (NonReactive)
[2018-09-17 20:29] LABS: Hep B Surf AB Reactive (NonReactive)
[2018-09-17 20:30] LABS: HBSAB Concentration 131.24 mIU/mL
--- NOTE | 2018-09-17 21:12 | CON ---
DATE OF CONSULTATION: NEPHROLOGY CONSULT REASON FOR CONSULTATION: End-stage renal disease and hyperkalemia. HISTORY OF PRESENT ILLNESS: This is a very pleasant 43-year-old gentleman, who dialyzes Thursday, Thursday, and Thursday, presented to the hospital after his malfunctioning dialysis catheter. The patient's last dialysis was . His bicarbonate was 11 and potassium was more than 6. The patient denies headache, numbness, tingling, or weakness. The patient has had multiple interventions by a belly dump driver as well as a vascular surgeon. PAST MEDICAL HISTORY: Significant for; 1. End-stage renal disease. 2. Hypertension. 3. AICD. 4. AV fistula. 5. Tunneled dialysis catheter. 6. Multiple access surgery. 7. History of ruptured AV fistula. MEDICATIONS: Home medications: Reviewed. Hospital medications: Reviewed. ALLERGIES: REVIEWED. REVIEW OF SYSTEMS: A 15-point review of system was performed and negative except for what is noted above. NECK: No swelling or lumps. NOSE: No epistaxis or discharge. EYES: No diplopia or pain. MUSCULOSKELETAL: No joint pain. NEUROPSYCHIATRIC SYSTEMS: No suicidal ideation. No ideation. SKIN: Denies any rash or ulcer. CONSTITUTIONAL: No fever or chills. PHYSICAL EXAMINATION: GENERAL: The patient is awake and alert. VITAL SIGNS: Afebrile, pulse 75, breathing 16, and blood pressure 160/70. GENERAL APPEARANCE AND MENTAL STATUS: Fair. HEAD/NECK: Normocephalic. Atraumatic. EYES: EOMI. No deformity. EARS: Clear. No ulcers. NOSE: Intact. No lesions. MOUTH: Clear. No discharge. THROAT: Clear. No exudate. LUNGS: Clear. No crackles. CARDIAC: S1, S2. No rub. ABDOMEN: Benign. Bowel sounds positive. GENITALIA/RECTUM: Lo absent. BACK/EXTREMITIES: Edema 0+. NEUROLOGICAL: Alert and motor intact. LABORATORY DATA: Showed hemoglobin was 10.8, potassium was 6.6, and creatinine . ASSESSMENT AND PLAN: 1. End-stage renal disease with hyperkalemia and acidosis. Plan on urgent dialysis, failed access. Surgery has been consulted. 2. Anemia, stable. 3. Medications based on glomerular filtration rate are appropriate. Job ID: [id number]
== END 2018-09-17 22:25 | disposition home or self-care (01) ==
LOC: ERS 15:16
DX: T82.49XA Other complication of vascular dialysis catheter, initial encounter (principal); I11.0 Hypertensive heart disease with heart failure; I50.9 Heart failure, unspecified
CPT/HCPCS: 36415; 80048; 86706; 87340; 99284; J1644

== ENCOUNTER 2020-07-03 09:47 | Outpatient (CLI) | payer MEDICARE ==
--- NOTE | 2020-07-03 14:15 | NM ---
EXAM: NM Parathyrd Planar W/Spect CT PROVIDED CLINICAL HISTORY: Secondary hyperparathyroidism of renal origin. COMPARISON: None FINDINGS: Parathyroid scan was performed with planar and SPECT imaging. Anterior and oblique images are obtaine d immediately, at 1 hour, and at 2 hours in addition to the SPECT images. There is a focus of persistent increased uptake seen in the lower pole left lobe of the thyroid gland suspicious for para thyroid adenoma. Top Lift Trimmer images of CT demonstrates vascular stents overlying the region of the axillary subclavian vein junction and the innominate vein. Dual-lead left subclavian AICD device is partially imaged. Vascular calcifications are seen in the thoracic aorta. Multiple serpiginous collateral vessels are s een in the subcutaneous soft tissues about the upper anterior left chest and centrally. 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
== END 2020-07-03 09:48 | disposition home or self-care (01) ==
LOC: NM 09:47
PROVIDERS: ATTEND Internal Medicine Nephrology
DX: N18.6 End stage renal disease (principal); N25.81 Secondary hyperparathyroidism of renal origin
CPT/HCPCS: 78072; A9500